=== PATIENT | male | born 1975 | race Caucasian/White ===

== ENCOUNTER 2018-11-09 11:02 | Inpatient (IN) | payer OTHER, SELFPAY ==
[2018-10-28 09:34] VITALS: BMI 22.4
[2018-11-09] VITALS (16 sets, daily range): BP systolic 117–146; BP diastolic 7–92; PULSE 82–106; RESP 9–17; TEMP 36.4–36.7; O2SAT 94–100; BMI 22.4
--- NOTE | 2018-11-09 | DI.RAD.S_ITS ---
PROCEDURE: XR CERVICAL SPINE 2V OR 3V INDICATIONS: C5-6. C6-7 ACDF TECHNIQUE: AP fluoroscopic view(s) of the cervical spine were acquired. COMPARISON: None. FINDINGS: Intraoperative fluoroscopic images of cervical spine shows anterior fusion hardware at C5-C7 levels.. IMPRESSION: Fluoroscopy guidance was provided intraoperatively for anterior fusion at C5-C7 levels. Dictated by: Delbert Deluca M.D. on 11/09/2018 at 16:45 Approved by: Delbert Deluca M.D. on 11/09/2018 at 16:48
[2018-11-09] MEDS: LACTATED RINGERS 1,000 ML 42 ML IV ×2 (12:14→15:05)
--- NOTE | 2018-11-09 12:22 | PM.PREOP ---
Pre-operative Note Interval Note History & Physical reviewed/Exam performed by Physician: Yes Changes to H&P: No
[2018-11-09] MEDS: CEFAZOLIN 2 GM/100 ML FROZ.PIGGY IV ×2 (13:12→20:44)
--- NOTE | 2018-11-09 13:35 | SUR.OPER ---
Supine on padded OR bed, head on pillow, arm padded and tucked at side, legs uncrossed, safety belt at thigh, tape over blanket over lower legs .
[2018-11-09] MEDS: ACETAMINOPHEN IV 1,000 MG/100 ML VIAL 400 MG IV (15:04)
--- NOTE | 2018-11-09 15:08 | PM.OP.1 ---
Operative Date/Time/Diagnoses Date of procedure: 11/09/18 Time of procedure: 13:08 Pre-op diagnosis: 1. C5-6, C6-7 spinal stenosis 2. C5-6, C6-7 spondylosis with radiculopathy Post-op diagnosis: same Procedure & Clinicians Procedure: 1. C5-6 C6-7 anterior cervical diskectomy and fusion 2. C5-6 C6-7 anterior interbody cage placement 3. C5-6 C6-7 anterior instrumentation with plate and screw placement in C5-C6 and C7 vertebrae 4. Utilization of microsurgical technique and operating microscope Same procedure as scheduled: Yes Indications: Patient has been having chronic neck pain and worsening cervical radiculopathy. Patient failed multiple conservative management with worsening pain weakness and numbness in her upper extremity. Patient has been having difficulty performing activity of daily living. After discussing risks benefits of treatment options, patient elected proceed with surgery. Surgeon: Guero Kelley Compound Coating Machine Offbearer: Callie Douglas Click Yes if Unassisted: No Anesthesia Type: General Operative Notes Closure Type: primary Specimen(s): none sent Implants & Drains: Globus extend plate, PEEK cages Estimated Blood Loss (mL): 20 Blood products transfused: none Procedure in detail: Patient was seen in the preoperative area. Risks and benefits of the surgery was discussed with the patient. Operative consent was obtained and placed in the chart. Patient was then taken to the operative room. Prophylactic antibiotic was given less than 0.5 hr prior to skin incision. General anesthesia was administered. Patient was placed into a supine position on her radiolucent table. Bilateral shoulders were taped down to allow proper C-arm imaging. Anterior cervical area was prepped and draped in a sterile fashion. Time-out was performed at this time. Using lateral C-arm imaging, the level between C5 and C7 was identified and marked on patient's neck. A oblique incision from midline towards medial border of sternocleidomastoid muscle was made. The platysma muscle was incised in line with skin incision. Metzenbaum scissor was used to develop the plane between the medial border of sternocleidomastoid d and the strap muscles medially. The carotid sheath and its contents were identified and protected behind the hand-held retractor during the entire case. The plane between the carotid sheath and strap muscles was developed with Metzenbaum scissors. Dissection was made down to the level of the anterior cervical fascia. Longus colli muscle was incised on the anterior aspect of vertebral bodies bilaterally from C5-C7. Spinal needle was placed into the C5-6 disc space and confirmed with lateral C-arm imaging. Using microsurgical technique and operative microscope, anterior cervical diskectomy was performed at C5-6 and C6-7 level. This was done by removing the disc material, removing the anterior and posterior osteophytes posterior longitudinal ligaments along with performing bilateral foraminotomies at both levels. Patient was found to have severe central and foraminal stenosis at both levels. Patient's stenosis was fully decompressed after decompression was completed. After the diskectomy was completed, 2 anterior interbody cages were obtained. The cages were packed with globus via cell bone grafting material. One cage each along with the bone grafting material was then packed into the interbody spaces from C5-C7 with one cage into each interbody level. After the cages were placed, the anterior cervical plate was stabilized to the C5-C7 vertebrae using 2 screws at each each level. Total 6 screws were placed. After confirming placement of the hardware with AP and lateral C-arm imaging, the screws were locked into the plate using the locking mechanism and torque limiting screwdriver. After the hardware was placed and confirmed with AP and lateral C-arm imaging, the wound was irrigated with sterile normal saline. The platysma muscle and the subcutaneous tissue was closed with 2-0 Vicryl. The skin was closed with 4-0Monocryl and Steri-Strips. Patient tolerated the procedure well. Patient was transferred recovery room in stable condition. There were no complications. Complications: none Condition: stable Disposition: PACU Plan for aftercare: Admit to inpatient hospital
[2018-11-09] MEDS: HYDROMORPHONE 2 MG INJ 0.5 MG IV ×4 (15:27→16:06)
--- NOTE | 2018-11-09 15:39 | SUR.PHASEI ---
Pt arrived awake, vss, c/o pain treated with dilaudid. presently decreasing in intensity
[2018-11-09] MEDS: ONDANSETRON 4 MG/2 ML INJ IV (15:47)
[2018-11-09] MEDS: OXYCODONE IR 5 MG TABLET PO (16:08)
--- NOTE | 2018-11-09 16:14 | SUR.PHASEI ---
Pt medicated with ondansetron for nausea which is now resolved. Medicated with oxycodone after applesauce tolerated. Dressing to anterior neck remained c/d/i and speech clear and swallow strong. report called and pt transported up to room 225 via this bed.
[2018-11-09] MEDS: OXYCODONE IR 5 MG TABLET 10 MG PO ×3 (17:09→23:58)
--- NOTE | 2018-11-09 17:52 | PC.NURSE ---
1700- Pt arrived to room 225 from PACU via bed. A/O x3, Anterior incision covered with gauze/tegaderm drsg, CDI, soft collar in place. 96%RA, LS clear denies SOB. BT+, denies nausea at this time, nausea in PACU. No numbness, CMS ++, reported slight lightheadedness when getting up to BRP with FWW, deep breathing, resolved. Voided clear yellow urine. I.S. 2000 with 1 breath. LFA NS @ 100 infusing. Eating soup drinking water, tolerating both well. call light in reach and bed alarm on for safety.
[2018-11-09] MEDS: SODIUM CHLORIDE 0.9% 1,000 ML 100 ML IV (20:00)
[2018-11-09] MEDS: SENNOSIDES 8.6 MG TABLET 17.2 MG PO (20:44)
[2018-11-09] MEDS: DOCUSATE 100 MG CAPSULE PO (20:44)
[2018-11-10] MEDS: OXYCODONE IR 5 MG TABLET 10 MG PO ×3 (02:56→10:03)
[2018-11-10 03:23] VITALS: BP 129/84; PULSE 93; RESP 18; TEMP 36.6; O2SAT 96
[2018-11-10] MEDS: CEFAZOLIN 2 GM/100 ML FROZ.PIGGY IV (04:25)
[2018-11-10 05:46] LABS: Hematocrit 42.6 % (41-53); Hemoglobin 14.3 g/dL (13.5-17.5)
--- NOTE | 2018-11-10 07:22 | PM.DS.1 ---
History of Present Illness Date Patient Seen: 11/10/18 Chief complaint: [id number] C5-6 C6-7 Narrative: Patient seen bedside status post C5-6, C6-[address] Kelley. Patient is postop day 1. He is doing well his pain is controlled with medication. He has been up and walking. Denies numbness tingling mild complaints of pain into his arms still. Denies chest pain shortness of breath or calf pain. Discharge Providers Date of admission: 11/09/18 11:02 Consults: 11/09/18 16:41 Consult to Occupational Therapy Evaluate & Treat Comment: Physician Instructions: Evaluate and treat Consult to Physical Therapy Evaluate & Treat Comment: Physician Instructions: Evaluate and Treat Discharge provider: Marissa Major PA-C Discharge Date: 11/10/18 Summary Discharge Diagnosis: 1. C5-6, C6-7 spinal stenosis 2. C5-6, C6-7 spondylosis with radiculopathy Hospital Course: Patient admitted to the hospital status post C5-C6-C6-C7 ACDF with Dr. Kelley on 11/10/18. Patient tolerated the procedure well with no major complications. He was transitioned to the acute care floor and placed on the standard cervical spine post-op protocol. He was seen by PT who recommended that he be discharged home. He was stable and ready for discharge on 11/10/18. Status at Discharge Cognitive/behavioral status at discharge: Alert & oriented x3 Functional status at discharge: independent ambulation Overall status at discharge: patient is progressing back to baseline Time Spent with Patient Less than 30 minutes Exam Vital Signs (past 8 hours): - 11/09/18 23:46 11/10/18 03:23 Temperature 97.8 F 97.8 F Pulse Rate 92 H 93 H Respiratory Rate 16 18 Blood Pressure 124/71 129/84 Pulse Oximetry 95 96 Oxygen Delivery Method Room Air Oxygen Flow Rate 0 Narrative Exam Narrative: Well-developed well-nourished no acute distress. Alert and oriented x3. Dressing on anterior neck is CDI, no signs of drainage. Minimal swelling no erythema. Sensation intact to light touch BUE. ROM intact in shoulders, elbows, and wrists. No focal deficits noted. Objective Labs Result Diagrams: 11/10/18 05:08 Labs: Laboratory Results - last 24 hr 11/10/18 05:08 Hgb 14.3 Hct 42.6 Discharge Plan Discharge Plan Patient Disposition: Home Discharge Med Rec/Prescriptions Prescriptions: New acetaminophen 325 mg Tablet 650 mg PO Q6HR PRN (Reason: Pain, Mild (1-3)) Qty: 0 RF: 0 docusate sodium 100 mg Capsule 100 mg PO BID Qty: 0 RF: 0 hydroxyzine pamoate 25 mg Capsule 25 mg PO Q4HR PRN (Reason: Nausea And Vomiting) Qty: 40 RF: 0 oxycodone 5 mg tablet 5 mg PO Q4-6H PRN (Reason: pain) Qty: 40 RF: 0 Discontinued aspirin 325 mg Tablet 325 mg PO DAILY RF: 0 Follow up/Referrals: Guero Kelley MD [Physician] - Provider Discharge Instructions Diet: Diet as Tolerated Activity: Limit bending/twisting neck, lifting no more than 5 lbs. Wear soft collar. Skin/Wound/Dressing Care Report to your healthcare provider any signs of infection, such as:: chills, fever, night sweats, increased pain, unusual drainage and unusual redness Dressing: Keep dressing clean, dry, and intact. May shower with it in place, but no soaking Visit Report/Discharge Packet Instructions: DI for Anterior Cervical Discectomy and Fusion, Oxycodone, Hydroxyzine Visit Report Forms: Stroke Signs & Symptoms Discharge Data Attending Provider: Guero Kelley Admit Date/Time: 11/09/18 11:02 Discharges patient from system. Discharge Date/Time: 11/10/18 11:05 Quality VTE Deep Vein Thrombosis/Pulmonary Embolism Present on Admission: No
[2018-11-10 08:00] VITALS: BP 116/68; PULSE 88; RESP 16; TEMP 36.6; O2SAT 97
[2018-11-10] MEDS: DOCUSATE 100 MG CAPSULE PO (08:17)
[2018-11-10] MEDS: hydrOXYzine pamoate 25 MG CAPSULE PO (08:17)
--- NOTE | 2018-11-10 09:32 | OT.IP.EVAL ---
Current Diagnoses Other spondylosis with radiculopathy, cervical region (11/09/18) Spinal stenosis, cervical region (11/09/18) Surgery Performed Operation Date: 11/09/18 13:15 Actual Procedures p C5-6, C6-7 ACDF w/Anterior Instru. - Guero Kelley MD Past Medical History (Last Updated 10/28/18 @ 10:08 by Kait Foster RN) Arthritis (Acute) Cervical spinal stenosis (Acute) Generalized headaches (Acute) Hives of unknown origin (Acute) Numbness and tingling (Acute) Pre-diabetes (Acute) Page teeth removed (Acute) Surgical History (Last Updated 10/28/18 @ 10:08 by Kait Foster RN) Hx of oral surgery (Acute) Occupational Therapy Inpatient Evaluation/Re-Eval M1 PT/OT-IP Prior Functional Status Start: 11/10/18 14:11 Freq: NEEDED Status: Active Protocol: Document 11/10/18 09:32 PJM (Rec: 11/10/18 14:28 PJM [id number]) Medical Review Prior Functional Status Medical History Reviewed Yes Diet/Fluid Consistency Regular Communication WNL Mobility and Gait stated that he is independent with all mobilities and ambulation without AD Activities of Daily Living and IADL's Pt was independent with all self care and IADLS, including driving. 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 Prior Functional Level (Other details) Pt reports he likes to active outdoors and does lots of camping. Social History Household Members none Living Arrangements House Number of Floors (Floors) One Floor Number of Stairs To Enter/Railing? 2 steps to enter with R side wall for support Home Environment Standard Height Toilet Tub/Shower Home Equipment Grab Bars In Shower Employment Status Personal Computer Specialist Employed Additional Social History Comment Pt states that he has friends/ co-workers who can assist PRN with grocery shopping and clinical project leader. He plans to sleep in his recliner for the first week. M2 OT-IP Current Condition Start: 11/10/18 14:11 Freq: Status: Active Protocol: Document 11/10/18 09:32 PJM (Rec: 11/10/18 14:28 PJM [id number]) Occupational Therapy Current Condition Current Condition Evaluation Date 11/10/18 Treatment Diagnosis C5-6, C 6-7 Anterior diskectomy/fusion Diagnosis Onset Date 11/09/18 Post Operative Precautions Cervical Spine Precautions Soft Collar at all Times No Heavy Lifting Log Roll M3 OT- IP Subjective and Pain Start: 11/10/18 14:11 Freq: Status: Active Protocol: Document 11/10/18 09:32 PJM (Rec: 11/10/18 14:28 [facility] [id number]) OT- Subjective Occupational Therapy Visit Type Type Initial Evaluation Visit Start Time 08:48 Visit Stop Time 09:32 Total Visit Minutes 44 Occupational Therapy Visit Comments Patient Comments I actually feel pretty good. Patient/Caregiver Goals to go home today, return to work in 2 weeks, and be able to go on [place] trip with brother in July 2019 OT Pain Assessment Pain When Pain Assessed After Treatment Pain Present Pain Present Pain Reported Location Neck Intensity 3 Description Aching Acute Pain Behaviors Facial Grimacing Guarding Management Techniques Distraction Re-positioning Timing of Activity with Medications M4 OT- IP ADL's Start: 11/10/18 14:11 Freq: Status: Active Protocol: Document 11/10/18 09:32 PJM (Rec: 11/10/18 14:28 [facility] [id number]) OT [id number] General Evaluation Diet Level for Self-Feeding softer foods Self-Feeding Ability Independent Comments OT Self-Feeding Comments pt states minimal discomfort with eating , but significant throat pain when coughing OT ADL-Grooming General Evaluation Grooming Ability Independent Areas Needing Assistance Face Washing Comments OT Grooming Comments standing at sink after education re: body mechanics OT ADL-Oral Care General Eval Oral Care Ability Independent Areas of Assistance Brushing Teeth Devices Oral Care Devices Toothbrush Comments Oral Care Comments standing at sink after education re: body mechanics OT ADL-Dressing General Eval Upper Body Dressing Ability Independent Lower Body Dressing Ability Independent Areas Needing Assistance Button-Up Shirt/Blouse Underpants/Brief Pants/Shorts Socks Shoes Comments OT Dressing Comments Demo'd water filter cleaner for getting objects off floor. Pt declines water filter cleaner and will use long tongs at home. Pt also declines sock aid stating he doesn't plan to wear socks until he returns to work and usually has no problems with task. Note pt unable to don socks today due to stiffness and lives alone. Pt independent with slip on shoes. OT ADL-Toileting General Evaluation Toileting Ability Independent OT ADL-Bathing Comments OT Bathing Comments Pt declines to shower here. Provided education re: methods to keep incision dry and pt verbalizes understanding. Pt declines long bath sponge. M5 OT- IP IADL's Start: 11/10/18 14:11 Freq: Status: Active Protocol: Document 11/10/18 09:32 PJM (Rec: 11/10/18 14:28 [facility] [id number]) OT-Instrumental Activities of Daily Living Deficits IADL Deficits Identified Deficits Home Safety Awareness Awareness of Need for Assistance at Home Good Awareness Ability to Problem Solve Emergency Able to Problem Solve Situations Medication Management Medication Management No Deficits Identified Money Management Money Management No Deficits Identified Meal Preparation Meal Preparation No Deficits Identified Circular Distributor Circular Distributor Caregiver Provides Assist Circular Distributor Comments Pt states friends can assist with grocery shopping and clinical project leader PRN Driving Driving Caregiver Provides Assist Driving Comments Friends to assist until pt able M6 OT- IP Functional Cognition Start: 11/10/18 14:11 Freq: Status: Active Protocol: Document 11/10/18 09:32 PJM (Rec: 11/10/18 14:28 [facility] NR) Cognitive Factors Limiting Selfcare Function Cognitive Ability Level of Alertness Alert Patient Orientation Name Age Birthday Month Date Year Day of Week Place Situation Attention Span Ability Capable of Focused Attention Capable of Sustained Attention Ability to Follow Commands Able to Follow One Step Commands Able to Follow Multi-Step Commands Memory Description No Deficits Noted Safety Awareness No Deficits Noted Problem Solving Ability No deficits Noted Executive Function Ability No Deficits Noted Abstract Thinking Ability No Deficits Noted Cognitive Comments Cognitive Assessment Comments Pt verbalizes and demo's good understanding of C spine precautions and has good safety awareness. OT- Vision and Hearing OT- Hearing Assessment OT- Hearing Assessment WFL OT- Vision Assessment Visual Acuity WFL Glasses All The Time M7 OT- IP Mobility and Balance Start: 11/10/18 14:11 Freq: Status: Active Protocol: Document 11/10/18 09:32 PJM (Rec: 11/10/18 14:28 [facility] [id number]) OT- Bed Mobility Assessment Rolling Type of Rolling Roll to Left Level of Assistance Independent Supine to Sit Supine to Sit Assist Independent Scooting Scooting to Edge of Bed Independent OT-Transfer Assessment Sit to and From Stand Sit to and from Stand Independent Transfers Transfer Ability Independent Technique Transfer Destination Bed Chair Transfer Technique Stand Step Pivot Devices Transfer Assistive Devices None OT- Gait Assessment Gait Gait Assistance Required: Independent Distance (Feet) 15 Assistive Devices Assistive Device None Comments Gait Ability Comments Pt up ad shemar in room without a device with no loss of balance this session. OT- Balance Assessment Sitting Balance and Reactions Static Sitting Balance Ability Good Dynamic Sitting Balance Ability Good Standing Balance and Reactions Static Standing Balance Ability Good Dynamic Standing Balance Ability Good M8 OT- IP Objective Assessments Start: 11/10/18 14:11 Freq: Status: Active Protocol: Document 11/10/18 09:32 PJM (Rec: 11/10/18 14:28 PJM [id number]) OT Gross Range of Motion Upper Extremity Range of Motion Assessment Within Functional Limits OT Strength Upper Extremity Strength Assessment Within Functional Limits Hand Rehab Director Strength Hand Dominance Right Comments Strength Comments Pt states his R hand strength in ulnar side intrinsics appear improved since surgery. BUE/hand strength WFL for all self care. OT- Coordination Assessment Comments Coordination Comments WFL B hands OT-Muscle Tone Assessment Muscle Tone WNL Yes OT Sensation Assessment Comments Summary Comments Pt had RUE ulnar side and 4th, 5th finger numbness prior to surgery which appears slightly improved post-op per pt. Edema Edema Absent M9 OT- IP Assessment and Plan Start: 11/10/18 14:11 Freq: Status: Active Protocol: Document 11/10/18 09:32 PJM (Rec: 11/10/18 14:28 PJM [id number]) OT Summary Assessment and Plan Potential Rehabilitation Potential Excellent Analytic Complexity at Evaluation Low Summary Progress Towards Goals Safe For Discharge Goals Met Assessment Summary Low complexity OT assessment and all OT education completed today re: C-spine precautions , body mechanics and adapted ADL techniques. Pt verbalizes and demonstrates understanding of all education. Pt lives alone but will have friends checking in on him several times/day, initially. He plans to d/c home today. No further OT services needed. Frequency of Treatment Frequency Of Treatment Discharge Discharge Recommendations OT Discharge Recommendations Home with Assistance Home Equipment Needs pt declines all equipt
--- NOTE | 2018-11-10 10:01 | PT.IIE ---
Current Diagnoses Other spondylosis with radiculopathy, cervical region (11/09/18) Spinal stenosis, cervical region (11/09/18) Surgery Performed Operation Date: 11/09/18 13:15 Actual Procedures p C5-6, C6-7 ACDF w/Anterior Instru. - Guero Kelley MD Surgical History (Last Updated 10/28/18 @ 10:08 by Kait Foster RN) Hx of oral surgery (Acute) Medical History (Last Updated 10/28/18 @ 10:08 by Kait Foster RN) Arthritis (Acute) Cervical spinal stenosis (Acute) Generalized headaches (Acute) Hives of unknown origin (Acute) Numbness and tingling (Acute) Pre-diabetes (Acute) [place] teeth removed (Acute) Physical Therapy Inpatient Evaluation/Re-Eval M1 PT/OT-IP Prior Functional Status Start: 11/10/18 11:25 Freq: NEEDED Status: Active Protocol: Document 11/10/18 10:01 AB (Rec: 11/10/18 11:39 AB [id number]) Medical Review Prior Functional Status Medical History Reviewed Yes Communication able to make needs known Mobility and Gait stated that he is independent with all mobilities and ambulation without AD Social History Household Members none Living Arrangements House Number of Floors (Floors) One Floor Number of Stairs To Enter/Railing? 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-workers who will check on pt stated that he will use his recliner to sleep on for the first week M2 PT-IP Current Condition Start: 11/10/18 11:25 Freq: NEEDED Status: Active Protocol: Document 11/10/18 10:01 AB (Rec: 11/10/18 11:39 AB [id number]) Physical Therapy Current Condition Current Condition Evaluation Date 11/10/18 Treatment Diagnosis s/p C5-6, C6-7 ACDF; difficulty in walking Onset Date 11/09/18 Precautions Cervical Spine Precautions Soft Collar for Comfort No Heavy Lifting Log Roll M3 PT-IP Subjective Start: 11/10/18 11:25 Freq: NEEDED Status: Active Protocol: Document 11/10/18 10:01 AB (Rec: 11/10/18 11:39 [id number]) Subjective Physical Therapy Visit Type Type Initial Evaluation Visit Start Time 10:01 Visit Stop Time 10:16 Total Visit Minutes 15 Number of MANAGER TRANSPLANT Visits 0 Physical Therapy Visit Comments Patient Comments pt agreeable to do PT Therapy Pain Assessment Pain When Pain Assessed At Rest Pain Present Pain Present Pain Reported Location Neck Intensity 4 Scale Used Numeric (1 - 10) Pain Management Techniques Timing of Activity with Medications M4 PT-IP Mobility and Gait Start: 11/10/18 11:25 Freq: NEEDED Status: Active Protocol: Document 11/10/18 10:01 AB (Rec: 11/10/18 11:39 [id number]) PT-Bed Mobility Assessment Rolling Type of Rolling Log Rolling Level of Assist Standby Assistance Supine to Sit Supine to Sit Standby Assistance Sit to Supine Sit to Supine Standby Assistance PT-Transfer Assessment Sit to and From Stand Sit to and from Stand Independent Equipment Transfer Assistive Device None Gait Belt Orthotic/Prosthetic Devices or Brace: Yes Gait Assessment Gait Gait Assistance Required: Standby Assistance Distance (Feet) 300 Able to Maintain Weight Bearing Status Yes During Gait Assistive Devices Assistive Device None Gait Belt Orthotic/Prosthetic Devices or Brace: Yes Factors Limiting Gait Function Factors Limiting Gait Function Incoordination Pain Stair Climbing Assessment Evaluation Level of Assist On Stairs Standby Assistance Devices Stair Climbing Assistive Devices Right Railing Technique/Endurance Stair Climbing Direction Ascend and Descend Stair Climbing Technique Step Over Step Number of Steps Climbed 3 Query Text: Stair Climbing Set # Repetitions (reps) 1 Comments Stair Climbing Comments pt used R rail for balance but not pulling up on it to get up/down steps PT-Balance Assessment Sitting Balance and Reactions Static Sitting Balance Ability Good Dynamic Sitting Balance Ability Good Standing Balance and Reactions Static Standing Balance Ability Good Dynamic Standing Balance Ability Good Device Used without AD M5 PT-IP Objective Assessments Start: 11/10/18 11:25 Freq: NEEDED Status: Active Protocol: Document 11/10/18 10:01 (Rec: 11/10/18 11:39 [id number]) Orientation Orientation/Cognition Level of Alertness Alert Orientation Name Age Birthday Month Date Year Day of Week Place Situation Safety Awareness Understands Safety Issues Memory Description No Deficits Noted Gross Range of Motion Lower Extremity ROM Assessment Within Functional Limits Strength Lower Extremity Strength Assessment Within Functional Limits Sensation Assessment Sensation Gross Sensation WNL Muscle Tone Muscle Tone WNL Yes M6 PT-IP Treatment Start: 11/10/18 11:25 Freq: NEEDED Status: Active Protocol: Document 11/10/18 10:01 AB (Rec: 11/10/18 11:39 AB [id number]) Physical Therapy Treatment Education Education Provided Precautions Safety Other Treatments Other Treatment Performed reviewed precautions and log roll bed mobility; stated that OT already covered soft cervical collar management. M7 PT-IP Assessment and Plan Start: 11/10/18 11:25 Freq: NEEDED Status: Active Protocol: Document 11/10/18 10:01 AB (Rec: 11/10/18 11:39 AB [id number]) PT Summary Assessment and Plan Potential Rehabilitation Potential Good Status of Condition at Evaluation Stable Summary Impairments Pain ROM Strength Balance Bed Mobility Gait Activity Tolerance Assessment Summary pt doing well with mobility requiring SBA with ambulation without AD. pt plans to go home today and will have friends/co-worker to check on him. Goals Bed Mobility Goal Independent Gait Goal Independent Gait Distance 350 Other Goals up/down 2 steps without rails mod I Days to Meet Goals 2 Frequency of Treatment Frequency Of Treatment Once a Day Treatment Plan Physical Therapy Treatment Plan Bed Mobility Training Transfer Training Gait Training Therapeutic Exercise Balance Retraining Post Op Education Discharge Planning Hot or Cold Pack Neuromuscular Re-ed Coordination Retraining Manual Therapy Recommendations To Nursing Amount of Assist Needed Standby Assistance Discharge Recommendations PT Discharge Recommendations Home
--- NOTE | 2018-11-10 11:57 | PC.NURSE ---
Discharge pt stated pain controlled with vistaril and oxycodone. Pt up with SBA. Cleared by PT/OT for d/c. Pt states he took all belongings home with him. d/c instructions provided to pt. notified of f/u apt with MD and to contact MD with any additional questions or concerns. pt left in w/c with [employer] SHE[employer] FINISHING PRESS OPERATOR escort to friend's vehicle for d/c around 1105
--- NOTE | 2018-11-11 08:27 | CM.IDA ---
Late Entry: Pt DC yesterday; indp at baseline and plan to DC back home POD#1 w/assist from his friends and co-workers. Multi-disciplinary team agree pt safe to DC back home, PT cleared pt and pt eager to go home. No barriers to safe DC home yesterday. ERIKA
== END 2018-11-10 11:05 | disposition home or self-care (01) | DRG 473 ==
PROVIDERS: Admitting Provider Orthopaedic Surgery Orthopaedic Surgery of the Spine; Visit Provider Orthopaedic Surgery Orthopaedic Surgery of the Spine
PROC: 0RG20A0 Fusion of 2 or more Cervical Vertebral Joints with Interbody Fusion Device, Anterior Approach, Anterior Column, Open Approach (ICD-10-PCS; principal; 2018-11-09 13:15)
DX: M47.22 Other spondylosis with radiculopathy, cervical region (principal); M48.02 Spinal stenosis, cervical region; F17.210 Nicotine dependence, cigarettes, uncomplicated
CPT/HCPCS: 36415; 72040; 76000; 85014; 85018; 97161; 97165; 97535; C1776; J0131; J0690; J1100; J1170; J2250; J2405; J2704; J3010